=== PATIENT | female | born 1935 | race Caucasian/White ===

== ENCOUNTER → 2019-06-12 | Outpatient (CLI) | payer MEDICARE, BC ==
[2016-03-20 14:17] VITALS: BP 157/74
[~2019-06-12] MED LIST: ASPI81TA50 PO; CHLO25TA9 PO; LEVO50TA5 PO; LISI10TA2 PO; POTA10CA PO
--- NOTE | 2019-06-12 13:48 | RAD ---
HIP LEFT 2 VIEW DATE: 06/12/2019 12:00 AM INDICATION: Left hip pain COMPARISON: None FINDINGS: Bones: There is no evidence of acute fracture or dislocation. Joints: The joint spaces are normal. Miscellaneous: Large amount of stool in the rectal vault. IMPRESSION: No evidence of acute fracture. Large amount of stool in the rectal vault. Electronically signed by: Duy Condon MD (06/12/2019 1:45 PM) [id number]
--- NOTE | 2019-06-12 13:50 | RAD ---
LUMBAR SPINE 2-3V DATE: 06/12/2019 12:00 AM INDICATION: Low back pain COMPARISON: None. FINDINGS: Five non-rib bearing lumbar-type vertebral bodies are present. Bones/Alignment: No evidence of acute compression fracture. Millimeter anterolisthesis at L4-5 and L5-S1 Joints: Severe degenerative disc disease at L4-5 and L5-S1 Miscellaneous: Large colonic stool burden, particularly in the rectal vault. Aortoiliac atherosclerotic calcifications. IMPRESSION: No evidence of acute compression fracture. Large colonic stool burden, particularly in the rectal vault. Electronically signed by: Duy Condon MD (06/12/2019 1:46 PM) [id number]
--- NOTE | 2019-06-12 14:17 | RAD ---
Left lower extremity venous duplex Doppler ultrasound HISTORY: Pain in left lower leg, pain in left hip. FINDINGS: No DVT with compressibility, patent color Doppler blood flow, augmentation of blood flow of the left common femoral vein, superficial femoral vein, profunda femoral vein and popliteal vein. No DVT with patent color Doppler blood flow the left calf veins documented. IMPRESSION: Negative left leg for DVT. Electronically signed by: Bertin Killian MD (06/12/2019 2:14 PM) [id number]
== END | disposition home or self-care (01) ==
LOC: DXRAD 12:54
PROVIDERS: ATTEND Nurse Practitioner Adult Health
DX: S39.012A Strain of muscle, fascia and tendon of lower back, initial encounter (principal); M51.37 Other intervertebral disc degeneration, lumbosacral region; I70.0 Atherosclerosis of aorta; X58.XXXA Exposure to other specified factors, initial encounter; Y93.89 Activity, other specified; Y92.89 Other specified places as the place of occurrence of the external cause; Y99.8 Other external cause status
CPT/HCPCS: 72100; 73502; 93971